=== PATIENT | male | born 1960 | race Caucasian/White ===

== ENCOUNTER 2016-10-13 05:25 | Day surgery (SDC) | payer OTHER ==
[~2016-10-13] VITALS: Ht 193 cm; Wt 72.7 kg
[2016-10-13] MEDS ORDERED: SODIUM CHLORIDE 0.9% 1,000 ML IV ONE ×2 (06:02→07:00)
[2016-10-13] MEDS ORDERED: PRED10 PO (06:33)
[2016-10-13] MEDS ORDERED: BACL10TA PO (06:33)
[2016-10-13] MEDS ORDERED: FAMO20 PO (06:33)
[2016-10-13] MEDS ORDERED: MONT10TA21 PO (06:33)
[2016-10-13] MEDS ORDERED: MIDAZOLAM HCL 2 MG/2 ML VIAL ONE (06:55)
[2016-10-13] MEDS ORDERED: FentaNYL CITRATE-PF 100 MCG/2 ML VIAL ONE (06:56)
[2016-10-13] MEDS ORDERED: MethylPREDNISolone SOD SUCC 125 MG/2 ML VIAL IVP ONE (08:45)
[2016-10-13] MEDS ORDERED: MethylPREDNISolone SOD SUCC 125 MG/2 ML VIAL ONE (08:51)
[2016-10-13] MEDS ORDERED: EPINEPHrine 1:1,000 [1 MG/ML] AMP ET ONE (16:50)
[2016-10-13] MEDS ORDERED: LIDOCAINE HCL 4% 50 ML SOLUTION TP ONE (16:50)
[2016-10-13] MEDS ORDERED: ALBUTEROL SULFATE 2.5 MG/0.5 ML NEB SOLUTION NEB ONE (16:50)
[2016-10-13] MEDS ORDERED: BENZOCAINE 20% 50 MCG/SPRAY 57 GM TP ONE (16:50)
[2016-10-13] MEDS ORDERED: LIDOCAINE HCL 2% 30 ML JELLY TP ONE (16:50)
[2016-10-13] MEDS ORDERED: OXYGEN THERAPY IH SCH (20:00)
== END 2016-10-13 09:45 | disposition home or self-care (01) ==
LOC: SURGERY 05:25
PROVIDERS: ATTEND Internal Medicine Critical Care Medicine
DX: J38.4 Edema of larynx (principal); B37.0 Candidal stomatitis; J45.909 Unspecified asthma, uncomplicated; M54.9 Dorsalgia, unspecified; F17.210 Nicotine dependence, cigarettes, uncomplicated; Z91.018 Allergy to other foods; Z98.890 Other specified postprocedural states; Z87.01 Personal history of pneumonia (recurrent); Z85.46 Personal history of malignant neoplasm of prostate; Z85.47 Personal history of malignant neoplasm of testis
CPT/HCPCS: 31623; 31624; 71010; 87015; 87070; 87101; 87205; 87220; J0171; J2250; J2930; J3010; J7030; 87147; 88108; 88312